=== PATIENT | male | born 1940 ===

== ENCOUNTER 2021-01-30 16:04 | Emergency (ER) | payer OTHER, BC ==
[2021-01-30 16:19] VITALS: BP 151/70; PULSE 82; TEMP 97.4; BMI 27.3
[2021-01-30] MEDS ORDERED: DIPHTH,PERTUSS(ACELL),TET 0.5 ML DISP.SYRIN IM ONE ×2 (19:13→19:16)
== END 2021-01-30 20:40 | disposition home or self-care (01) ==
LOC: JER 16:04
PROC: 0HQ1XZZ Repair Face Skin, External Approach (ICD-10-PCS; principal; 2021-01-30)
PROC: 3E0234Z Introduction of Serum, Toxoid and Vaccine into Muscle, Percutaneous Approach (ICD-10-PCS; 2021-01-30)
DX: S01.111A Laceration without foreign body of right eyelid and periocular area, initial encounter (principal); H53.8 Other visual disturbances
CPT/HCPCS: 70480-TC; 90715; 99284-25; C9803; U0003; U0005